=== PATIENT | female | born 2000 | race Caucasian/White ===

== ENCOUNTER 2022-10-12 21:59 | Emergency (ER) | payer OTHER, SELFPAY ==
[2022-10-12 22:05] VITALS: BP 120/74; PULSE 86; RESP 16; TEMP 36.1; O2SAT 99
--- NOTE | 2022-10-12 22:29 | ED.GENADULT ---
HPI - General Adult General Chief complaint: Abdominal Pain Stated complaint: pain in upper L abdomen Time Seen by Provider: 10/12/22 22:05 Source: patient Mode of arrival: ambulatory Limitations: no limitations History of Present Illness HPI narrative: 22-year-old female coming in today complaining of left upper quadrant abdominal pain is been going on for about 3 days. She states that today it has been more constant and getting worse. Nothing seems to make it better. Movement does seem to make it worse. She denies any vomiting but has felt slightly nauseous on and off. She has been able to eat. She denies any diarrhea or constipation. Last bowel movement was yesterday and was normal. She denies any urinary symptoms such as frequency urgency or dysuria. She denies any fevers or chills. She does state that she traveled from [place] last Friday. She is not short of breath or coughing. She does not take any control. She does not have any history of blood clots nor any family history of DVTs or PEs that she is aware of. She denies drug use. She does not play any sports. She does state that about 2 weeks ago she was sick with fatigue, fever and cough. She is generally healthy and takes no medications. Related Data Allergies Allergy/AdvReac Type Severity Reaction Status Date / Time No Known Drug Allergies Allergy Verified 10/12/22 22:09 Review of Systems Status of ROS: Reports: 10 or more systems reviewed and unremarkable except as noted in History and below [facility] Social History Smoking Status: Never smoker Do you use any of these nicotine containing products: None Non-prescribed substance use: denies use Exam Narrative: Exam Narrative: Well-nourished well-developed patient in no acute distress. Alert and oriented. Answers questions appropriately. Mood and affect are appropriate. Thoughts are goal oriented and rational. No tangential or magical thinking noted. Patient speaks in full sentences without needing to catch their breath. HEENT: Normocephalic atraumatic. Pupils are equally round reactive to light. Extraocular muscles are intact. Conjunctivae are moist without any icterus noted. Moist mucous membranes. Posterior pharynx is normal. Neck is soft without any lymphadenopathy or thyromegaly. No masses are appreciated. Cardiovascular: Heart is regular rate and rhythm S1 and S2 are present without any murmurs. Lungs: Clear to auscultation bilaterally no wheezes rhonchi or rales are appreciated. Patient takes deep breaths without any discomfort. Abdomen: Soft and nondistended. She has mild epigastric discomfort and tenderness in the left upper quadrant. She feels discomfort with deep inspiration. She has normal bowel sounds. No rebound tenderness. Remainder of the abdominal exam is normal. Extremities: Bilateral lower extremities are without edema. Normal DP and PT pulses. Skin: Well perfused without any obvious rashes. Const: Vital Signs, click to edit/add: Vital Signs - 24 hr 10/12/22 22:05 10/12/22 22:45 Temperature 97.0 F L Pulse Rate [Right Pulse Oximeter] 86 73 Respiratory Rate 16 18 Blood Pressure [Le ft Upper Arm] 120/74 105/67 Pulse Oximetry 99 99 Oxygen Delivery Me thod Room Air Room Air Course Course Hospital Course: Lab work was done and was unremarkable aside from a slightly elevated D-dimer. Although risk of PE is low, patient is having pain at a location that could represent a PE and she was recently on a flight. Because of this, I do feel that the benefit outweighs the risk at this time and so we did proceed with a chest CT, PE protocol which fortunately, did not show any evidence of PE. No other abnormalities noted on CT at the area of discomfort. Vital Signs Vital signs: Initial Vital Signs Temperature 97.0 F L 10/12/22 22:05 Temperature Source Temporal Artery Scan 10/12/22 22:05 Pulse Rate 86 10/12/22 22:05 Pulse Rhythm Regular 10/12/22 22:05 Respiratory Rate 16 10/12/22 22:05 Blood Pressure 120/74 10/12/22 22:05 Blood Pressure Mean 89 10/12/22 22:05 Blood Pressure Position Semi-Fowlers 10/12/22 22:05 Pulse Oximetry 99 10/12/22 22:05 Oxygen Delivery Method Room Air 10/12/22 22:05 Vital Signs Temperature 97.0 F L 10/12/22 22:05 Pulse Rate 86 10/12/22 22:05 Respiratory Rate 16 10/12/22 22:05 Blood Pressure 120/74 10/12/22 22:05 Pulse Oximetry 99 10/12/22 22:05 Oxygen Delivery Method Room Air 10/12/22 22:05 Temperature 97.0 F L 10/12/22 22:05 Pulse Rate 73 10/12/22 22:45 Respiratory Rate 18 10/12/22 22:45 Blood Pressure 105/67 10/12/22 22:45 Pulse Oximetry 99 10/12/22 22:45 Oxygen Delivery Method Room Air 10/12/22 22:45 Medical Decision Making MDM Narrative Medical decision making narrative: 22-year-old female with left upper quadrant abdominal discomfort of unclear etiology. We discussed the possibility of abdominal wall discomfort. We discussed symptomatic treatment for the time being reasons for follow-up. Patient was agreeable had no other questions. Lab Data Lab results reviewed: Yes I reviewed the patient's lab results Labs: Lab Results 10/12/22 10/12/22 Range/Units 22:10 22:25 WBC 7.48 (4.50-11.00) K/uL RBC 4.25 (4.00-5.20) m/uL Hgb 12.6 (12.0-16.0) gm/dL Hct 36.9 (33.0-51.0) % MCV 87 (80-100) fL MCH 30 (26-34) pg MCHC 34 (32-36) gm/dL Plt Count 279 (140-440) K/uL Neut % (Auto) 50.1 (42.0-72.0) % Lymph % (Auto) 38.8 (20-44) % [place] % (Auto) 7.8 (0.0-11.0) % Eos % (Auto) 1.7 (0.0-7.0) % Baso % (Auto) 0.7 (0.0-3.0) % Neut # (Auto) 3.70 (1.7-7.0) K/uL Lymph # (Auto) 2.90 (0.90-2.90) K/uL [place] # (Auto) 0.60 (0.00-0.90) K/UL Eos # (Auto) 0.10 (0.00-0.50) K/uL Baso # (Auto) 0.10 (0.00-0.30) K/uL ESR 10 (2-20) mm/hr D-Dimer Quant (PE/DVT) 0.56 H (0.00-0.50) ug/ml Sodium 133 L (135-149) mmol/L Potassium 3.6 (3.6-5.1) mmol/L Chloride 99 (96-114) mmol/L Carbon Dioxide 25 (20-32) mmol/L BUN 14 (5-24) mg/dL Creatinine 0.7 (0.5-1.5) mg/dL Estimated GFR 125 ml/min Glucose 85 (60-115) mg/dL Lactate 0.7 (0.5-1.9) mmol/L Calcium 9.2 (8.4-10.6) mg/dL Total Bilirubin 0.4 (0.1-1.5) mg/dL Direct Bilirubin 0.1 (0.0-0.5) mg/dL AST 26 (12-35) U/L ALT 21 (4-35) U/L Alkaline Phosphatase 60 (40-150) U/L C-Reactive Protein < 0.5 L (0.5-1.0) mg/dL Total Protein 7.6 (6.0-8.3) g/dL Albumin 4.4 (3.3-5.0) g/dL Lipase 45 (23-300) U/L HCG, Qual Negative (Negative) Monoscreen Negative (Negative) Imaging Data CT scan - chest: Attestation: I have reviewed the pertinent imaging results. Radiologist's impression: CT chest PE was acquired with 95 cc Isovue 370 IV contrast. COMPARISON: None. FINDINGS: Heart and vasculature: Contrast opacification of the pulmonary arterial tree is adequate. No sign of pulmonary embolism. Heart size is normal. Thoracic aorta and pulmonary artery are normal in caliber. Lungs and pleura: No suspicious nodules or consolidation.? No pleural effusions, pleural thickening, or pneumothorax. Lymph nodes/mediastinum: No mediastinal, hilar, or axillary adenopathy. Chest wall: No masses. Upper abdomen: No acute or significant findings. Bones: Unremarkable for age. IMPRESSION: No pulmonary embolism. Unremarkable CT of the chest without acute findings. Discharge Plan Discharge Clinical Impression: Abdominal pain Patient Disposition: Home, Self-Care Condition: Stable Additional Instructions: Your workup was normal today. For discomfort you can try heating pad to the uncomfortable area, do not apply heat directly to skin. Okay to use ibuprofen or Tylenol as needed/as directed. If things are worsening follow-up with your primary care provider. Follow Up/Referrals: Provider,Not a Local [Primary Care Provider] - Stand Alone Forms: [facility] Info Instructions
[2022-10-12 22:45] VITALS: BP 105/67; PULSE 73; RESP 18; O2SAT 99
[2022-10-12 22:49] LABS: Lactate* 0.7 mmol/L (0.5-1.9)
[2022-10-12 23:04] LABS: Mono Screen* Negative (Negative)
[2022-10-12 23:05] LABS: Chloride* 99 mmol/L (96-114)
[2022-10-12 23:06] LABS: Albumin* 4.4 g/dL (3.3-5.0); Potassium* 3.6 mmol/L (3.6-5.1); Sodium* 133 mmol/L (135-149)
[2022-10-12 23:08] LABS: Creatinine* 0.7 mg/dL (0.5-1.5); Estimated Glomerular Filt Rate 125 ml/min
[2022-10-12 23:09] LABS: Alanine Aminotransferase* 21 U/L (4-35); Alkaline Phosphatase* 60 U/L (40-150); Aspartate Amino Transferase* 26 U/L (12-35); Bilirubin Direct* 0.1 mg/dL (0.0-0.5); Bilirubin Total* 0.4 mg/dL (0.1-1.5); Blood Urea Nitrogen* 14 mg/dL (5-24); Calcium* 9.2 mg/dL (8.4-10.6); Carbon Dioxide* 25 mmol/L (20-32); Glucose* 85 mg/dL (60-115); Lipase* 45 U/L (23-300); Total Protein* 7.6 g/dL (6.0-8.3)
[2022-10-12 23:12] LABS: C Reactive Protein* < 0.5 mg/dL (0.5-1.0)
[2022-10-12 23:13] LABS: D Dimer Quantitative* 0.56 ug/ml (0.00-0.50)
[2022-10-12 23:17] LABS: Hematocrit 36.9 % (33.0-51.0); Hemoglobin* 12.6 gm/dL (12.0-16.0); Lymphocytes Percent Auto 38.8 % (20-44); Mean Corpuscular HGB Conc 34 gm/dL (32-36); Mean Corpuscular Hemoglobin 30 pg (26-34); Mean Corpuscular Volume 87 fL (80-100); Monocytes Percent Auto 7.8 % (0.0-11.0); Neutrophils Percent Auto 50.1 % (42.0-72.0); Platelet Count* 279 K/uL (140-440); Red Blood Count 4.25 m/uL (4.00-5.20); White Blood Count* 7.48 K/uL (4.50-11.00)
[2022-10-12 23:18] LABS: Basophils Percent Auto 0.7 % (0.0-3.0); Eosinophils Percent Auto 1.7 % (0.0-7.0); Immature Granulocytes Abs Auto 0.07 K/uL (0.00-0.30); Slide Review Reflex No
[2022-10-12 23:20] LABS: HCG Qualitative* Negative (Negative)
--- NOTE | 2022-10-12 23:23 | CRLHL7_ITS ---
For Patients: As a result of the Century Cures Act, medical imaging exams and procedure reports are released immediately into your electronic medical record. You may view this report before your referring provider. If you have questions, please contact your health care provider. INDICATION: Chest pain. TECHNIQUE: CT chest PE was acquired with 95 cc Isovue 370 IV contrast. COMPARISON: None. FINDINGS: Heart and vasculature: Contrast opacification of the pulmonary arterial tree is adequate. No sign of pulmonary embolism. Heart size is normal. Thoracic aorta and pulmonary artery are normal in caliber. Lungs and pleura: No suspicious nodules or consolidation. No pleural effusions, pleural thickening, or pneumothorax. Lymph nodes/mediastinum: No mediastinal, hilar, or axillary adenopathy. Chest wall: No masses. Upper abdomen: No acute or significant findings. Bones: Unremarkable for age. IMPRESSION: No pulmonary embolism. Unremarkable CT of the chest without acute findings. Please note that all CT scans at this facility use dose modulation, iterative reconstruction, and/or weight-based dosing when appropriate to reduce radiation dose to as low as reasonably achievable. Dictated by Iain Lee MD @ 10/13/2022 12:19:43 AM (Electronically Signed)
[2022-10-13 00:06] LABS: Erythrocyte SedimentationRate* 10 mm/hr (2-20)
== END 2022-10-13 00:40 | disposition home or self-care (01) ==
PROVIDERS: Emergency Provider Family Medicine
DX: R10.12 Left upper quadrant pain (principal)
CPT/HCPCS: 36415; 71260; 80048; 80076; 83605; 83690; 84703; 85025; 85379; 85651; 86140; 86308; 99284; Q9967